=== PATIENT | female | born 1970 | race Caucasian/White ===

== ENCOUNTER 2016-11-15 19:23 | Inpatient (IN) | payer OTHER ==
[2016-11-15] VITALS (151 sets, daily range): BP systolic 99–108; BP diastolic 64–76; PULSE 82–84; TEMP 98.1; O2SAT 97–100
[~2016-11-15] VITALS: Ht 165.1 cm; Wt 98.9 kg
[~2016-11-15 19:23] MED LIST: BUSPAR10 MG PO; BUSPAR5 MG; COLACE 100100 MG/CAP PO; EFFE25TA; EFFEXOR-XR150 MG PO; FERROUS SULFAT325 M2 PO; KLONOPIN 0.5MG0.5 MG PO; LEVAQUIN 750MG750 MG PO; LEVOTHYROXINE PO; MAXALT5 MG PO; PERCOCET 325 MG1 TA2 PO; PERCOCET 500 MG1 TAB PO; SINGULAIR 110 MG/TAB PO; SINGULAIR10 MG PO; SYNTHROID0.125 MG/T PO; SYNTHROID0.15 MG PO; WELLBUTRIN SR100 M1 PO; ZANTAC 150MG T150 MG PO; ZANTAC150 MG PO; ZOFRAN8 MG PO; ZYRTEC 10MG10 MG PO; ZYRTEC10 MG PO
[2016-11-15] MEDS ORDERED: VOLTAREN GEL 1%1 TU TP (21:47)
[2016-11-15] MEDS ORDERED: FLEXERIL 1010 MG/TAB PO (21:47)
[2016-11-15] MEDS ORDERED: DESYREL 100MG100 MG PO (21:47)
[2016-11-16] VITALS (1007 sets, daily range): BP systolic 90–109; BP diastolic 54–77; PULSE 68–83; TEMP 97.6–98.4; O2SAT 73–100
[2016-11-16 01:12] LABS: TROPONIN-I 1.11 ng/mL (0.000-0.034)
[2016-11-17] VITALS (12 sets, daily range): BP systolic 91–105; BP diastolic 63–71; PULSE 76–94; TEMP 97.5–98.7
[2016-11-17 04:12] LABS: MEAN CELL VOLUME 85 fl (80.0-100.0); MEAN CORPUSCULAR HGB CONC 32 g/dl (33.0-37.0); MEAN PLATELET VOLUME 10.5 fl (7.4-10.4); PLATELET COUNT 176 K/mm3 (130-400); RED BLOOD COUNT 4.24 M/mm3 (4.10-5.30); REDCELL DISTRIBUTION WIDTH-CV 13.9 % (11.5-14.5); WHITE BLOOD COUNT 5.7 K/mm3 (4.8-10.8)
[2016-11-17 04:19] LABS: INR 1.1 (0.8-3.0); PROTHROMBIN TIME 11.8 SECONDS (9.7-12.8)
[2016-11-17 04:22] LABS: HEMATOCRIT 36.2 % (37.0-47.0); HEMOGLOBIN 11.5 g/dl (12.5-16.0); MEAN CORPUSCULAR HEMOGLOBIN 27 pg (27.0-31.0)
[2016-11-17 04:36] LABS: CALCIUM 8.8 mg/dL (8.4-10.2); CREATININE, serum 1.13 mg/dL (0.52-1.25); POTASSIUM 4.2 mmol/L (3.4-5.0)
[2016-11-17] MEDS ORDERED: ASPIRIN E.C. 8181 MG PO (14:53)
[2016-11-17] MEDS ORDERED: ZANTAC 150MG T150 MG PO (16:13)
== END 2016-11-17 17:20 | disposition home or self-care (01) | DRG 287 ==
LOC: ICU 19:23 → IMCU 20:00 → MEDICAL 20:00
PROVIDERS: Internal Medicine; Internal Medicine Interventional Cardiology
PROC: B2111ZZ Fluoroscopy of Multiple Coronary Arteries using Low Osmolar Contrast (ICD-10-PCS; principal; 2016-11-15)
PROC: B2151ZZ Fluoroscopy of Left Heart using Low Osmolar Contrast (ICD-10-PCS; 2016-11-15)
DX: R07.89 Other chest pain (principal); R94.31 Abnormal electrocardiogram [ECG] [EKG]; G47.33 Obstructive sleep apnea (adult) (pediatric); E03.9 Hypothyroidism, unspecified; E66.9 Obesity, unspecified; J45.909 Unspecified asthma, uncomplicated; F32.9 Major depressive disorder, single episode, unspecified; Z90.5 Acquired absence of kidney; Z68.35 Body mass index [BMI] 35.0-35.9, adult
CPT/HCPCS: 99223-AI; 99232-AI; 99239; A9270-GY; C1760; C1894; J1644; J2250; J3010; J7030; Q9967